=== PATIENT | female | born 1955 | race Caucasian/White ===

== ENCOUNTER 2018-02-18 15:37 | Emergency (ER) | payer OTHER, MEDICARE ==
[~2018-02-18 15:37] MED LIST: ALPRAZOLAM0.5 MG PO; ATORVASTATIN CA20 MG PO; HUMALOG 100U100 U/ML; IRBESARTAN300 M1 PO; LEVEMIR FL300 UNITS/ SC; LISINOPRIL20 MG PO; TOUJEO SOL300 UNIT/1 SC; VENLAFAXINE HYD75 MG PO; ZOFRAN 4 MG TABL4 MG PO; ZOFRAN ODT4 M1 PO
--- NOTE | 2018-02-18 18:25 | RADIOLOGY REPORT ---
EXAMINATION: XR FOOT, LEFT CLINICAL INFORMATION: Pain assess for fracture COMPARISON: None TECHNIQUE: AP, lateral, and oblique views of the left foot. FINDINGS: The bones and soft tissues are normal. No fracture. Alignment is anatomic. Mild degenerative changes are seen at the first MTP joint. No significant acute bony abnormalities at the base of the fifth metatarsal which was marked as an area of pain. IMPRESSION: No acute bony abnormalities seen.
--- NOTE | 2018-02-18 19:07 | ED GENERAL ADULT ---
History of Present Illness General Chief Complaint: Foot or Ankle Injury Stated Complaint: L FOOT PAIN, FELT TEAR Source: patient Exam Limitations: no limitations Vital Signs & Intake/Output Vital Signs & Intake/Output Vital Signs Date Time Temp Pulse Resp B/P B/P Pulse O2 O2 Flow FiO2 Mean Ox Delivery Rate 02/18 1922 98.7 71 18 134/79 96 Room Air 02/18 1841 Room Air 02/18 1548 99.0 75 16 136/71 95 Room Air Allergies Coded Allergies: gluten (UNKNOWN 02/13/16) Reconcile Medications Alprazolam 0.25 MG TABLET 1 TAB PO DAILY PRN ANXIETY (Reported) Atorvastatin Calcium (Lipitor) 20 MG TABLET 1 TAB PO DAILY CHOLESTEROL ( Reported) Insulin Glargine,Hum.rec.anlog (Toujeo Solostar) 300 UNIT/1 ML INSULN.PEN 12 U SC DAILY DIABETES (Reported) Insulin Lispro (Humalog) (Unknown Strength) VIAL 0 SEE SLIDING SCALE DIABETES (Reported) Sliding scale, please follow your own insulin regimen as prescribed by your nuclear worker technician. Irbesartan 300 MG TABLET 1 TAB PO DAILY HEART (Reported) Ondansetron (Zofran Odt) 4 MG TAB.RAPDIS 1 TAB PO Q6 PRN NAUSEA Tramadol HCl 50 MG TABLET 1 TAB PO BIDP PRN pain VENLAFAXINE HCL (Venlafaxine Hydrochloride) 75 MG TAB 75 MG PO DAILY DEPRESSION Triage Note: PT TO ED WITH C/O LEFT FOOT PAIN S/P "STEPPING WRONG" TODAY AND FEELING A TEAR. STATES HAD BEEN FEELING SOME PAIN IN FOOT ON/OFF FOR THE PAST COUPLE DAYS. DENIES FALLING. PAIN IN CONSTANT. NO SWELLING OR OBVIOUS DEFORMITY NOTED. Triage Nurses Notes Reviewed? yes Onset: Abrupt Duration: hour(s): Timing: single episode today HPI: 62-year-old female with a history of diabetes, raynaud's, celiac's presenting with left foot pain status post stepping the wrong way a few hours prior to arrival. Patient reports she has had on and off chronic pain for a while in this foot. Today she was walking and stepped the wrong way, accidentally inverted her ankle and then had sudden onset of intense tearing pain. Denies numbness or paresthesias. On arrival to the emergency department patient is noted to have a posterior tibialis pulse that is audible with Doppler, her dorsalis pedis pulse is not palpable or audible with Doppler. She states that this is a known chronic issue and she has had ultrasounds for evaluation in the past with unremarkable workup. (Yelizta Vazquez) Past History Travel History Traveled to [place] past 21 day No Medical History Any Pertinent Medical History? see below for history Neurological: NONE EENT: postnasal drip Cardiovascular: NONE Respiratory: NONE Gastrointestinal: CELIAC DISEASE Hepatic: NONE Renal: NONE Musculoskeletal: NONE Psychiatric: NONE Endocrine: diabetes, Raynauds Blood Disorders: NONE Cancer(s): NONE LEARNING AND DEVELOPMENT CONSULTANT/Reproductive: NONE Other Medical Hx: BENIGN THYROID TUMOR Surgical History Surgical History: PARTIAL THYROIDECTOMY Psychosocial History What is your primary language Indonesian Tobacco Use: Never used Family History Hx Contributory? No (Yelitza Vazquez) Review of Systems Review of Systems Constitutional: Reports: no symptoms. EENTM: Reports: no symptoms. Respiratory: Reports: no symptoms. Cardiovascular: Reports: no symptoms. GI: Reports: no symptoms. Genitourinary: Reports: no symptoms. Musculoskeletal: Reports: see HPI. Skin: Reports: no symptoms. Neurological/Psychological: Reports: no symptoms. Hematologic/Endocrine: Reports: no symptoms. Immunologic/Allergic: Reports: no symptoms. All Other Systems: Reviewed and Negative (Yelitza Vazquez) Physical Exam Physical Exam General Appearance: well developed/nourished, no apparent distress, alert, awake , comfortable Comments: Gen.: Well-nourished, well-developed, no acute distress. Head: Normocephalic, atraumatic. Eyes: Normal inspection bilaterally Ears: Normal inspection bilaterally Nose: Normal inspection Neck: Normal inspection Lungs: clear to auscultation bilaterally, normnal breath sounds Heart: regular rate and rhythm Abdomen: soft and non-tender EXTREMITIES: Left foot/ankle Inspection: Normal inspection Palpation: Tender palpation over the lateral aspect of the foot and the dorsal aspect of the lateral calcaneus ROM: unrestricted range of motion at the ankle joint, able to range all toes Sensation: intact Motor strength: 5/5 at the ankle joint Pulse: posterior tibialis pulse audible with Doppler, dorsalis pedis pulse no audible or palpable, temperature is symmetric in both feet, and cap refill is less than 2 seconds Neurologic: alert and oriented x3, steady gait Skin: warm and dry Psychiatric: Normal mood and affect, no apparent delusions or hallucinations, behavior appropriate Core Measures ACS in differential dx? No CVA/TIA Diagnosis: No Sepsis Present: No Sepsis Focused Exam Completed? No (Yelitza Vazquez) Progress Differential Diagnoses I considered the following diagnoses in my evaluation of the patient: [Ankle sprain versus tendinitis versus fracture versus dislocation versus tendon injury versus nerve injury versus vascular injury] Plan of Care: Orders Procedure Date/time Status Durable Medical Equipment 02/18 190 Active Durable Medical Equipment 02/18 1855 Active X-ray unremarkable. Placed in Aircast and given crutches for ambulation, with weightbearing as tolerable. States that she will use naproxen 500 mg at home for pain, also given a few tablets of tramadol for breakthrough pain. Given podiatry follow-up. Counseled on strict return precautions. Given that patient states her dorsalis pedis pulse has chronically not been palpable or audible and she has had workup for this in the past, additionally there is no temperature difference in the foot, and cap refill is less than 2 seconds, therefore there is low concern for acute vascular injury. Patient was seen and evaluated by the ED attending and cleared for discharge. Initial ED EKG: none (Yelitza Vazquez) Departure Departure Disposition: HOME OR SELF CARE Condition: Stable Clinical Impression Primary Impression: Left ankle sprain Referrals: Brandin GIBSON,Satinder (PCP/Family) Javan Jimenez DPM Additional Instructions: Use naproxen and tramadol as needed for pain. Keep her ankle applied in the Aircast. You may weight-bear as tolerable, and use crutches as needed. Follow- up with podiatry for further evaluation. Return to the emergency department for any new or worsening symptoms. Departure Forms: Customer Survey General Discharge Information Prescriptions: Current Visit Scripts Tramadol HCl 1 TAB PO BIDP PRN pain #10 TAB (Yelitza Vazquez) PA/HAND STRAIGHTENER Co-Sign Statement Statement: ED Attending supervision documentation- [X] I saw and evaluated the patient. I have also reviewed all the pertinent lab results and diagnostic results. I agree with the findings and the plan of care as documented in the PA's/HAND STRAIGHTENER's documentation. [] I have reviewed the ED Record and agree with the PA's/HAND STRAIGHTENER's documentation. [] Additions or exceptions (if any) to the PAs/HAND STRAIGHTENER's note and plan are summarized below: [] Feet have bilaterally equal temperature to palpation. Equal capillary refill (Lukas Love DO) Critical Care Note Critical Care Note Critical Care Time: non-applicable (Yuan JOINER,Yelitza)
[2018-02-18] MEDS ORDERED: TRAMADOL HCL50 M1 PO (19:10)
[2018-02-18 19:22] VITALS: BP 134/79
== END 2018-02-18 19:22 ==
LOC: ERH 15:37
DX: S93.402A Sprain of unspecified ligament of left ankle, initial encounter (principal); X58.XXXA Exposure to other specified factors, initial encounter; Y93.01 Activity, walking, marching and hiking; Y92.9 Unspecified place or not applicable; K90.0 Celiac disease; E11.9 Type 2 diabetes mellitus without complications; Z79.84 Long term (current) use of oral hypoglycemic drugs
CPT/HCPCS: 73630-LT